=== PATIENT | female | born 1995 | race Caucasian/White ===

== ENCOUNTER 2016-09-12 01:07 | Inpatient (IN) | payer MEDICAID ==
[2016-09-12] MEDS ORDERED: XYLOCAINE 2% INFILTRATI ONE (02:11)
[2016-09-12] MEDS ORDERED: POLYCILLIN/NS 2 GM/100 ML 2 GM/100 ML BAG IV ONE (02:11)
[2016-09-12] MEDS ORDERED: STADOL IV PRN (02:11)
[2016-09-12] MEDS ORDERED: NARCAN 0.4 MG/1 ML IV PRN (02:11)
[2016-09-12] MEDS ORDERED: ePHEDrine SULFATE IV PRN (02:11)
[2016-09-12] MEDS ORDERED: BRETHINE SUB-Q PRN (02:11)
[2016-09-12] MEDS ORDERED: ZOFRAN IV PRN (02:11)
[2016-09-12] MEDS ORDERED: BRETHINE IVP PRN (02:11)
[2016-09-12] MEDS ORDERED: MINERAL OIL PO PRN (02:11)
[2016-09-12] MEDS ORDERED: SUBLIMAZE IV PRN (02:11)
[2016-09-12] MEDS ORDERED: LACTATED RINGERS 1,000 ML IV SCH (03:00)
[2016-09-12] MEDS ORDERED: PITOCin/NS 20 UNIT/1000ML DRIP 20 UNITS/1,000 ML BAG IV SCH (03:00)
[2016-09-12 03:06] LABS: Hematocrit 36.3 % (30.3-42.9); Hemoglobin 12.2 gm/dl (10.1-14.3); Mean Corpuscular HGB Conc 34 % (30-34); Mean Corpuscular Hemoglobin 30 pg (28-32); Mean Corpuscular Volume 90 fl (79-97); Platelet Count 162 K/mm3 (140-440); Red Blood Count 4.05 M/mm3 (3.65-5.03); Red Cell Distribution Width 14.2 % (13.2-15.2); White Blood Count 10.6 K/mm3 (4.5-11.0)
[2016-09-12] MEDS: POLYCILLIN/NS 1 GM/50 ML 1 GM/50 ML BAG IV SCH ×2 (06:54→11:10)
[2016-09-12] MEDS ORDERED: PITOCin/NS 30 UNIT/500ML 30 UNITS/500 ML BAG IV SCH (07:00)
--- NOTE | 2016-09-12 07:55 | History and Physical Report ---
History of Present Illness Date of examination: 09/12/16 Date of admission: 09/12/16 02:08 History of present illness: 20 yo EDC 09/09/16 @ 40.3 presented last night in latent labor. Second trimester entry into care at 13 weeks gestation. course complicated by glucose intolerance with normal 3hr GTT. She is GBS positive. Past History Past Medical History: no pertinent history Past Surgical History: no surgical history Family/Genetic History: none Social history: no significant social history - Obstetrical History Expected Date of Delivery: 09/09/16 Actual Gestation: 40 Week(s) 3 Day(s) : 1 Medications and Allergies Allergies Allergy/AdvReac Type Severity Reaction Status Date / Time No Known Allergies Allergy Unverified 09/12/16 01:30 Active Meds: Active Medications Butorphanol Tartrate (Stadol) 2 mg IV Q2H PRN PRN Reason: Pain , Severe (7-10) Fentanyl (Sublimaze) 100 mcg IV Q2H PRN PRN Reason: Labor Pain Ampicillin Sodium (Polycillin/Ns 1 Gm/50 Ml) 1 gm in 50 mls @ 100 mls/hr IV Q4HR ANGEL PRN Reason: Protocol Last Admin: 09/12/16 06:54 Dose: 100 mls/hr Lactated Ringer's (Lactated Ringers) 1,000 mls @ 125 mls/hr IV DIRECT ANGEL Last Admin: 09/12/16 02:59 Dose: 125 mls/hr Oxytocin/Sodium Chloride (Pitocin/Ns 20 Unit/1000ml Drip) 20 units in 1,000 mls @ 125 mls/hr IV DIRECT ANGEL Oxytocin/Sodium Chloride (Pitocin/Ns 30 Unit/500ml) 30 units in 500 mls @ 4 mls /hr IV TITR ANGEL PRN Reason: Protocol Last Titration: 09/12/16 06:53 Dose: 8 ml/hr, 8 mls/hr Mineral Oil (Mineral Oil) 30 ml PO QHS PRN PRN Reason: Constipation Naloxone HCl (Narcan 0.4 Mg/1 Ml) 0.1 mg IV Q2MIN PRN PRN Reason: Res Rate </= 8 or 02 SAT < 92% Ondansetron HCl (Zofran) 4 mg IV Q8H PRN PRN Reason: Nausea And Vomiting Review of Systems All systems: negative Genitourinary: normal appearance, leakage of fluid (thin meconium), contractions , no vaginal bleeding, no vaginal discharge - Vital Signs Vital signs: Vital Signs Pulse BP 79 126/72 09/12/16 01:23 09/12/16 01:23 Temp Pulse Resp BP Pulse Ox 98.2 F 79 16 117/57 97 09/12/16 07:28 09/12/16 07:49 09/12/16 07:28 09/12/16 07:29 09/12/16 07:49 - Physical Exam Lungs: Positive: Normal air movement Abdomen: Positive: normal appearance - Obstetrical FHR: category 1 Uterine Contraction Monitor Mode: External Cervical Dilatation: 4.5 (AROM-thin meconium) Cervical Effacement Percentage: 100 station: -1 Uterine Contraction Frequency (min): 2-4 Uterine Contraction Duration: 60-80 Uterine Contraction Pattern: Regular Uterine Tone Measurement Phase: Resting Uterine Contraction Intensity: Moderate Results Result Diagrams: 09/12/16 02:20 All other labs normal. Assessment and Plan A: IUP at term Active Labor +GBS-Second Dose infusing now P: AROM-thin meconium Active Bernard't NICU for delivery
--- NOTE | 2016-09-12 13:21 | Procedure Note ---
OB Delivery Note - Delivery Date of Delivery: 09/12/16 (8-8oz female @ 1257) Surgeon: RHYS TINSLEY Estimated blood loss: 200cc - Vaginal Delivery presentation: vertex Delivery position: OA Delivery induction: oxytocin Delivery augmentation: rupture of membranes Delivery monitor: external FHT, external uterine Route of delivery: Delivery placenta: spontaneous Delivery cord: 3 umbilical vessels Episiotomy: none Delivery laceration: 1st degree (vaginal, not bleeding approximates well), other (Right labial, approximates) Anesthesia: none - A at 1 minute: 8 at 5 minutes: 9 Gender: Female (Pushed for viable female. NICU at for meconium. Spont. cry immediately at delivery of head. Bulb suctioned, dried and placed skin to skin. Apgars 9/9. Cord blood collected. Spont. placenta. Lacerations as noted. +GBS, adaquate treatment.)
[2016-09-12] MEDS ORDERED: PHENERGAN PR PRN (13:23)
[2016-09-12] MEDS ORDERED: TUCKS PAD TP PRN (13:23)
[2016-09-12] MEDS ORDERED: PHENERGAN PO PRN (13:23)
[2016-09-12] MEDS ORDERED: LANSINOH TP PRN (13:23)
[2016-09-12] MEDS ORDERED: NORCO 5/325 PO PRN (13:23)
[2016-09-12] MEDS ORDERED: DULCOLAX PR PRN (13:23)
[2016-09-12] MEDS ORDERED: TYLENOL PO PRN (13:23)
[2016-09-12] MEDS ORDERED: BENADRYL PO PRN (13:23)
[2016-09-12] MEDS ORDERED: SODIUM CHLORIDE FLUSH SYRINGE 10 ML IV NR (14:00)
[2016-09-12] MEDS ORDERED: SOLARCAINE ALOE TP ONE (17:31)
[2016-09-12] MEDS ORDERED: SOLARCAINE ALOE TP PRN (18:14)
[2016-09-12] MEDS: MOTRIN PO SCH ×2 (18:31→20:28)
[2016-09-13 01:30] LABS: Hematocrit 34.5 % (30.3-42.9); Hemoglobin 11.4 gm/dl (10.1-14.3)
[2016-09-13] MEDS: MOTRIN PO SCH ×3 (01:45→17:51)
[2016-09-13] MEDS ORDERED: M-M-R II VACCINE SUB-Q ONE (06:00)
[2016-09-13] MEDS ORDERED: BOOSTRIX IM ONE (06:00)
--- NOTE | 2016-09-13 13:28 | Progress Note ---
Assessment and Plan A/P PPD#1 s/p No complaints bleeding decreased H/H 12.2/36---11.4/34.5 O+ no rhogam indicated girl d/c home tomorrow undecided about control Subjective - Subjective Date of service: 09/13/16 Principal diagnosis: s/p Patient reports: appetite normal, voiding normally, pain well controlled, flatus , ambulating normally [place]: doing well, nursing well Objective - Vital Signs Latest vital signs: Vital Signs Temp Pulse Resp BP 09/13/16 09:32 98.3 F 88 18 114/62 09/13/16 01:45 16 09/13/16 00:00 98.6 F 84 20 100/50 09/12/16 20:28 16 09/12/16 20:10 100.1 F H 78 20 108/50 09/12/16 17:05 98 F 72 20 90/48 09/12/16 15:15 99.4 F 78 20 124/61 09/12/16 14:29 84 114/57 09/12/16 14:14 78 118/57 09/12/16 13:59 88 119/56 09/12/16 13:44 93 H 123/55 09/12/16 13:29 80 122/66 Intake and Output 09/12/16 09/13/16 09/13/16 22:59 06:59 14:59 Intake Total 605 240 600 Output Total 1000 Balance -395 240 600 Intake: IV 125 Right Hand 125 Oral 480 240 600 Output: Urine 1000 Void 1000 Other: Total, Intake Amount 240 240 240 Total, Output Amount 400 # Voids Void 1 1 - Exam Breasts: Present: normal Cardiovascular: Present: Regular rate, Normal S1 Lungs: Present: Clear to auscultation, Normal air movement Abdomen: Present: normal appearance, soft, normal bowel sounds. Absent: distention, tenderness, guarding Uterus: Present: normal, firm, fundal height below umbilicus (at umbilicus ). Absent: bogginess, tenderness Extremities: Present: normal Deep Tendon Reflex Grade: Normal +2
--- NOTE | 2016-09-13 13:30 | Discharge Summary ---
Providers - Providers Date of Admission: 09/12/16 02:08 Date of discharge: 09/14/16 Attending physician: CAMI ZUNIGA Primary care physician: CAMI ZUNIGA Hospitalization Reason for admission: active labor Delivery: Episiotomy: none Laceration: 1st degree Incision: normal, dry, intact complications: none Discharge diagnosis: IUP at term delivered baby: female Hospital course: Patient doing well. VSS. pain well controlled. Ambulating well. Tolerating diet. Normal h/H no anemia noted O + no rhogam inidcated. discharged to f/u in 4 weeks for PP check . Condition at discharge: Good Disposition: DC-01 TO HOME OR SELFCARE Plan - Discharge Medications Prescriptions: Ibuprofen [Motrin] 600 mg PO Q8H PRN #30 tablet PRN Reason: Pain oxyCODONE /ACETAMINOPHEN [Percocet 5/325] 1 tab PO Q6HR PRN #30 tablet PRN Reason: Pain - Provider Discharge Summary Additional instructions: [] Smoking cessation referral if applicable(refer to patient education folder for contact #) [] Refer to [facility] Booklet Call your doctor immediately for: * Fever > 100.5 * Heavy vaginal bleeding ( >1 pad per hour) * Severe persistent headache * Shortness of breath * Reddened, hot, painful area to leg or breast * Drainage or odor from incision. * Keep incision clean and dry at all times and follow doctor's instructions regarding bathing/showering - Follow up plan Follow up: CAMI ZUNIGA MD [Primary Care Provider] - 7 Days
[2016-09-14] MEDS: MOTRIN PO SCH ×3 (00:11→12:11)
[2016-09-14] MEDS ORDERED: BOOSTRIX IM ONE (06:00)
[2016-09-14 19:08] VITALS: BP 124/62
== END 2016-09-14 17:40 | disposition home or self-care (01) | DRG 775 ==
LOC: TRG 01:07 → LD 02:08 → OB 15:33
PROVIDERS: ADMIT Obstetrics & Gynecology; ATTEND Obstetrics & Gynecology
PROC: 3E033VJ Introduction of Other Hormone into Peripheral Vein, Percutaneous Approach (ICD-10-PCS; principal; 2016-09-12)
PROC: 10E0XZZ Delivery of Products of Conception, External Approach (ICD-10-PCS; principal; 2016-09-12)
PROC: 0HQ9XZZ Repair Perineum Skin, External Approach (ICD-10-PCS; 2016-09-12)
PROC: 3E0234Z Introduction of Serum, Toxoid and Vaccine into Muscle, Percutaneous Approach (ICD-10-PCS; 2016-09-12)
DX: O99.824 Streptococcus B carrier state complicating childbirth (principal); Z3A.40 40 weeks gestation of pregnancy; Z37.0 Single live birth; O77.0 Labor and delivery complicated by meconium in amniotic fluid; O70.0 First degree perineal laceration during delivery
CPT/HCPCS: 36415; 85014; 85018; 85027; 86592; 86850; 86900; 86901; 90471; 90715; 99211; A6250; G0463; J0290; J0595; J2590; J3010; J7120